=== PATIENT | female | born 1955 | race Caucasian/White ===

== ENCOUNTER 2017-02-24 14:29 | Emergency (ER) | payer BC ==
[2017-02-24] MEDS: Sodium Chloride 0.9% 1,000 ML PRIMARY IV ONE ×2 (14:40→15:25)
[2017-02-24] MEDS ORDERED: NORMAL SALINE 10 ML SYRINGE FLUSH IVP PRN (14:43)
[2017-02-24] MEDS ORDERED: LORazepam 2 MG/1 ML VIAL IVP ONE (14:45)
--- NOTE | 2017-02-24 14:57 | EKG ---
[address] [address] Measurements Intervals [place] Rate: 70 P: 36 GA: 166 QRS: 73 QRSD: 95 T: 58 QT: 386 QTc: 407 Interpretive Statements SINUS RHYTHM No previous ECG available for comparison Electronically Signed On 02-24-17 15:03:55 MDT by Rick Julien [email or web address]
[2017-02-24 15:11] VITALS: RESP 18; TEMP 97.6
[2017-02-24 16:15] LABS: BILIRUBIN,URINE NEGATIVE (NEG); COLOR,URINE YELLOW; GLUCOSE, URINE (UA) NEGATIVE (NEG); NITRATE,URINE NEGATIVE (NEG); OCCULT BLOOD,URINE NEGATIVE (NEG); PH,URINE 7.5 (5.0-8.5); PROTEIN,URINE NEGATIVE (NEG); UROBILINOGEN,URINE 0.2 EU/dL (0.2)
[2017-02-24 16:21] LABS: CLARITY,URINE CLEAR (CLEAR)
[2017-02-24 16:22] LABS: URINE SAMPLE TYPE CLEAN CATCH URINE
[2017-02-24 16:24] LABS: AMPHETAMINE SCREEN NEGATIVE (NEG); METHAMPHETAMINES SCREEN,URINE NEGATIVE (NEG); OPIATE SCREEN,URINE NEGATIVE (NEG)
[2017-02-24 16:25] LABS: CANNABINOID SCREEN,URINE NEGATIVE (NEG); COCAINE SCREEN NEGATIVE (NEG); METHADONE URINE SCREEN NEGATIVE (NEG)
[2017-02-24 16:29] LABS: BASOPHILS # (AUTO) 0.04 10*3/UL; BASOPHILS % (AUTO) 0.4 % (0-1); EOSINOPHILS % (AUTO) 4.8 % (0-8); HEMATOCRIT 49.1 % (37.0-47.0); HEMOGLOBIN 16.7 g/dL (12.0-16.0); LYMPHOCYTES # (AUTO) 2.68 10*3/uL; MEAN CORPUSCULAR VOLUME 94.1 FL (81-99); MEAN PLATELET VOLUME 8.8 FL (7.4-12.2); MONOCYTES # (AUTO) 0.64 10*3/UL (0.3-0.8); MONOCYTES % (AUTO) 6.2 % (5-15); NEUTROPHILS # (AUTO) 6.48 10*3/UL; NEUTROPHILS % (AUTO) 62.5 % (50-80); RED BLOOD COUNT 5.22 10^6/uL (4.20-5.40)
[2017-02-24 16:36] LABS: PLATELET MORPHOLOGY COMMENT NORMAL MORPHOLOGY (NORM); RBC MORPHOLOGY COMMENT NORMAL MORPHOLOGY (NORM); WBC MORPHOLOGY COMMENT NORMAL MORPHOLOGY (NORM)
[2017-02-24 16:41] LABS: BLOOD UREA NITROGEN 12 mg/dL (7-22); BUN/CREATININE RATIO 13.33 (6-20); CALCIUM 9.6 mg/dL (8.7-10.7); EST GLOMERULAR FILTRATION > 60 (>60 ml/min/1.73m(2)); MAGNESIUM 2.1 mg/dL (1.6-2.4); SERUM ALBUMIN 3.8 g/dL (3.5-4.8)
--- NOTE | 2017-02-24 18:14 | PDOC ---
General Adult HPI - General Chief Complaint: General Medical Stated Complaint: fingers tingling, dry mouth Date Seen by Provider: 02/24/17 Time Seen by Provider: 15:05 Source: POSITIVE: Patient, Spouse Exam Limitations: POSITIVE: No limitations Nurse's Notes Reviewed & Considered: Yes - History of Present Illness Initial Comment: The patient is a 61-year-old female who presents to the emergency department with several complaints. She reports that she has a long-standing history of anxiety. 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 She states that she became upset on Monday and got into some type of argument with her . Afterward she states she felt some tightness in her chest as well as some increased dizziness and numbness and tingling around her lips and in her fingertips. She reports that off and on since then she has had some similar symptoms. Last night she had an episode of stuttering. She denies any current chest pain or headache. She denies any numbness or weakness in her extremities. She does report some dizziness which she describes as more vertigo type symptoms with increased unsteadiness with movement. She reports she has a long-standing history of problems with her sinuses and was told recently she did have some fluid in her inner ear. She has been taking Flonase and using sinus rinses. She denies any fever, urinary symptoms or any other associated complaints. She has been on her current anxiety medication for the about 6 months and she doesn't think that it is helping. She reports that she had her thyroid tested recently and it was normal. Have you received a tetanus shot in the past 10 years?: Yes - Patient Home Medications Home Medications: Home Medications Levothyroxine Sodium [Synthroid Tab] 112 mcg PO DAILY 03/11/15 Albuterol Sulfate [Proair Hfa] 1 - 2 puff INH Q4-6H #1 inhaler 02/15/17 Vilazodone Hydrochloride [Viibryd] 20 mg PO DAILY tab 02/15/17 Loratadine [Claritin] 10 mg PO PRN PRN 02/24/17 Lorazepam [Ativan] 0.5 mg PO BID PRN 02/24/17 Meclizine HCl 25 mg PO Q6H PRN #20 tablet 02/24/17 Multivitamin [Multivitamins] 1 each PO DAILY 02/24/17 Mv,Ca,Min/FA/Herbal No.160 [Estroven Pms Caplet] 100 mcg PO DAILY 02/24/17 - Patient Allergies Allergies/Adverse Reactions: Allergies Allergy/AdvReac Type Severity Reaction Status Date / Time Penicillins Allergy Severe SEVERE RASH Verified 02/24/17 14:38 Sulfa (Sulfonamide Allergy Severe SEVERE RASH Verified 02/24/17 14:38 Antibiotics) sulfamethoxazole Allergy Severe SEVERE RASH Verified 02/24/17 14:38 [From Bactrim] trimethoprim [From Bactrim] Allergy Severe SEVERE RASH Verified 02/24/17 14:38 egg AdvReac Severe VOMITING Verified 02/24/17 14:38 Past Medical History - heen HEENT History: Denies History Cardiovascular History: Denies History Respiratory History: Other (please comment) Additional Respiratory History: RECENT BRONCHITIS Gastrointestinal History: Denies History Genitourinary History: Denies History Endocrine History: Hypothyroidism Musculoskeletal History: Denies History Prosthesis or Implant: No Additional Musculoskeletal History: CHRONIC NECK PAIN Neurological History: Denies History Blood Disorders: Denies History Psychiatric History: Depression, Anxiety Disorders History of Sexually Transmitted Diseases: No Female Reproductive History: Hysterectomy Additional Female Reproductive History: X2 Cancer History: Denies History In Past Year Been Physically Harmed or Verbally Threatened: No History of MDRO: No History of Other Communicable Diseases: No Tobacco Use: Current Every Day Smoker Alcohol Use: None Substance Use Type: None Previous Surgical History: Yes Type / Date of Surgery: TESFAYE KNEE SURGERY/ SCOPES. RIGHT ROTATOR CUFF. HYST Anesthesia Reactions: No Significant Family History: No pertinent family hx Past Medical History Reviewed: Reviewed - No Changes ROS - Limitations ROS Limitations: No Limitations Constitution: DENIES: Chills, Fever Cardiovascular: REPORTS: Chest Pain (Last episode of chest pressure was on Monday after an emotional episode), Heart Palpitations Respiratory: REPORTS: Other (Recent bronchitis treated with Zithromax has improved). DENIES: Cough Non Productive, Cough Productive, Shortness Of Breath Neurological: REPORTS: Dizziness, Other (Some upper neck pain which is not unusual for her). DENIES: Headache, Numbness, Weakness Gastrointestinal: DENIES: Abdominal Pain, Vomitting, Diarrhea Musculoskeletal: REPORTS: Denies MS Symptoms Eyes: DENIES: Vision Changes ENT: REPORTS: Vertigo, Congestion, Nasal Drainage, Sinus Problem (Chronic sinus issues). DENIES: Earache Skin: DENIES: Rash Psychiatric: POSITIVE: Anxiety General Adult Exam - General Appearance General Appearance: POSITIVE: Alert, Cooperative, No Acute Distress, Anxious - HEENT HEENT: POSITIVE: Head Inspection Nml, Eyes Inspection Nml, Ears Inspection Nml ( She does have some clear fluid noted in the middle ear on the right side), Pharynx Inspect. Nml, PERRL, EOMI - Neck Neck: POSITIVE: Normal Inspection. NEGATIVE: Lymphadenopathy - Respiratory Respiratory: POSITIVE: No Respiratory Distress, Breath Sounds Normal - Cardiovascular Cardiovascular: POSITIVE: Regular Rate & Rhythm, No Murmur Peripheral Pulses: Dorsalis-pedis (R): 2+, Dorsalis-pedis (L): 2+ - Abdomen Abdomen: Soft: (All Quadrants), Denies Tenderness: (All Quadrants), No Distention: (All Quadrants) - Back Back: POSITIVE: Normal Inspection - Skin Skin: POSITIVE: Normal Color, No Rash General Adult Progress - Results Reviewed by me Lab Results Reviewed: Yes Lab Results:: Laboratory Results 02/24/17 02/24/17 Range/Units 15:30 16:24 WBC 10.36 (4.8-10.8) 10^3/uL RBC 5.22 (4.20-5.40) 10^6/uL Hgb 16.7 H (12.0-16.0) g/dL Hct 49.1 H (37.0-47.0) % MCV 94.1 (81-99) FL MCH 32.0 H (27-31) PG MCHC 34.0 (33-37) g/dL RDW Std Deviation 51.3 H (39-50) fL RDW Coeff of Nemo 15.1 H (11.5-14.5) % Plt Count 256 (140-350) 10*3/uL MPV 8.8 (7.4-12.2) FL Immature Gran % (Auto) 0.2 (0-5) % Neut % (Auto) 62.5 (50-80) % Lymph % (Auto) 25.9 (10-50) % Kings % (Auto) 6.2 (5-15) % Eos % (Auto) 4.8 (0-8) % Baso % (Auto) 0.4 (0-1) % Immature Gran # (Auto) 0.02 10*3/UL Neut # (Auto) 6.48 10*3/UL Lymph # (Auto) 2.68 10*3/uL Kings # (Auto) 0.64 (0.3-0.8) 10*3/UL Eos # (Auto) 0.50 10*3/UL Baso # (Auto) 0.04 10*3/UL WBC Morphology Comment Normal morphology (NORM) Plt Morphology Comment Normal morphology (NORM) RBC Morph Comment Normal morphology (NORM) Sodium 143 (135-145) meq/L Potassium 4.4 (3.8-5.2) meq/L Chloride 107 (98-112) meq/L Carbon Dioxide 27 (23-33) meq/L Anion Gap 9 (5-20) BUN 12 (7-22) mg/dL Creatinine 0.9 (0.50-1.20) mg/dL Estimated GFR > 60 (>60 ml/min/1.73m(2)) BUN/Creatinine Ratio 13.33 (6-20) Glucose 99 (78-110) mg/dL Calculated Osmolality 295.0 H (267-292) mOsm/kg Calcium 9.6 (8.7-10.7) mg/dL Magnesium 2.1 (1.6-2.4) mg/dL Total Bilirubin 0.8 (0.3-1.2) mg/dL AST 32 (8-39) IU/L ALT 47 (9-52) IU/L Alkaline Phosphatase 69 (38-126) IU/L Troponin I < 0.012 (< 0.040) ng/mL Total Protein 6.7 (6.1-8.0) g/dL Albumin 3.8 (3.5-4.8) g/dL Globulin 2.8 (2.50-4.10) g/dL Albumin/Globulin Ratio 1.30 (1.3-2.0) mg/g Ur Collection Type Clean catch urine Urine Color Yellow Urine Clarity Clear (CLEAR) Urine pH 7.5 (5.0-8.5) Ur Specific Kirkman 1.010 (1.005-1.030) U Specif Grav (Refrac) 1.010 Urine Protein Negative (NEG) mg/dl Urine Glucose (UA) Negative (NEG) mg/dL Urine Ketones Negative (NEG) Urine Occult Blood Negative (NEG) Urine Nitrate Negative (NEG) Urine Bilirubin Negative (NEG) Urine Urobilinogen 0.2 (0.2) EU/dL Ur Leukocyte Esterase Negative (NEG) Ur Culture Indicated? Culture not set Urine Opiates Screen Negative (NEG) Ur Buprenorphine Negative (NEG) Ur Oxycodone Screen Negative (NEG) Urine Methadone Screen Negative (NEG) Ur Propoxyphene Screen Negative (NEG) Barbiturate Screen Negative (NEG) U Tricyclic Antidepress Negative (NEG) Phencyclidine Screen Negative (NEG) Amphetamines Screen Negative (NEG) U Methamphetamines Scrn Negative (NEG) Benzodiazepines Screen Negative (NEG) Cocaine Screen Negative (NEG) U Marijuana (THC) Screen Negative (NEG) Serum Alcohol < 10 (0-10) mg/dL EKG Interpreted/Reviewed By Me:: Yes EKG Interpretation:: POSITIVE: Normal Sinus Rhythm, Normal Rate, Normal Intervals, Normal [place], Normal QRS, Normal ST/T - Patient's Progress MDM / ED Course: EKG done shortly after arrival revealed normal sinus rhythm with no acute changes. Blood work was obtained and was all essentially unremarkable except for a mildly elevated hemoglobin and hematocrit. Her troponin, chemistries, liver function, kidney function were all normal. Head CT was also normal. At this point her symptoms are most consistent with hyperventilation syndrome related to her anxiety attacks. In addition she has some ongoing issues with intermittent vertigo which has also been worse recently. This most likely is related to inner ear disturbance and she does have some evidence of fluid in her inner ear. She is advised to continue Flonase and was prescribed meclizine as needed for dizziness. For now she will continue her Ativan as needed for anxiety. She doesn't feel that her baseline medication is working very well and she is advised to follow-up with her primary care provider to discuss further options. In addition her H&H is elevated some and she may be having issues related to smoking and/or sleep apnea. She was advised to discuss this with her primary care providers well. Her oxygen saturations here were normal. She is advised return to the emergency room if any worsening or change in symptoms. - Consult Counseled: POSITIVE: Patient, Family, RE: Lab Results, RE: Radiology Results, RE : DX, RE: Need for F/U Patient Care Time - Estimated PCT Patient Care Time (In Minutes): 40 Vital Signs - Recent Vital Signs Vital Signs: Vital Signs (Last 8 hours) Temp Pulse Pulse Resp BP BP Pulse Ox 02/24/17 17:42 90 146/89 92 02/24/17 15:00 97.6 F 83 18 102/66 93 - VS Reviewed Vital Signs Reviewed: Yes Discharge Clinical Impression: Vertigo, Anxiety, Hyperventilation syndrome Discharge Disposition: Discharged to Home Condition: Stable Prescriptions / Orders: Meclizine HCl 25 mg PO Q6H PRN #20 tablet PRN Reason: Dizziness Patient Instructions Given at Discharge: Hyperventilation (ED), Vertigo (ED), Anxiety (ED) Additional Instructions: Your EKG of your heart was normal and your blood work did not reveal any evidence of a heart attack. The CAT scan of your head was normal. Your blood work was all essentially normal except for your blood being slightly thick. This could be related to smoking or sleep apnea potentially. The most likely cause of the numbness and tingling as well as some of the chest pressure is likely secondary to the increased stress to anxiety and associated hyperventilation. The dizziness may be related to some fluid in your in her ear. Continue Flonase as previously recommended. In addition you been prescribed meclizine 25 mg every 6 hours as needed for dizziness. I did recommend follow-up with primary care to discuss medication changes for treatment of your anxiety symptoms. Return to the emergency room if any worsening or change in symptoms. Follow Up With: JADE HODGES [Primary Care Provider] -
== END 2017-02-24 17:41 | disposition home or self-care (01) ==
LOC: ER 14:29
DX: F41.1 Generalized anxiety disorder (principal); F45.8 Other somatoform disorders; R42 Dizziness and giddiness
CPT/HCPCS: 36415; 70450; 80053; 80305; 80320; 81003; 83735; 84484; 85025; 93005; 93010; 96361; 96374; 99283; J2060; J7030